=== PATIENT | male | born 1985 | race American Indian/Alaskan Native ===

== ENCOUNTER 2021-08-30 10:06 | Emergency (ER) | payer SELFPAY ==
[2021-08-30 10:24] VITALS: BP 145/91
[2021-08-30] MEDS ORDERED: FAMOTIDINE 20 MG TAB PO ONE (11:09)
[2021-08-30] MEDS ORDERED: ONDANSETRON 4 MG ODT TAB PO ONE (11:09)
[2021-08-30] MEDS ORDERED: ALUM-MAG HYDROXIDE-SIMETHICONE 200-200-20MG/5ML ORAL LIQD 30 ML PO ONE (11:09)
[2021-08-30] MEDS ORDERED: LIDOCAINE VISCOUS 2% 15 ML ORAL LIQD PO ONE (11:09)
--- NOTE | 2021-08-30 11:10 | Emergency Department Report ---
ED Abdominal Pain HPI - General Chief Complaint: Abdominal Pain Stated Complaint: STOMACH ULCER Time Seen by Provider: 08/30/21 10:53 Source: patient Mode of arrival: Ambulatory Limitations: No Limitations - History of Present Illness Initial Comments: 36-year-old male with known history of peptic ulcer disease presents to the ER today with complaint of epigastric/left upper quadrant abdominal pain. Patient states that his symptoms flareup about 1 week ago. He states that he has been taking [id number] famotidine, and Pepto-Bismol without much relief. He reports intermittent vomiting intermittent diarrhea and he noticed that his stools were black. He denies any fever, chills, UTI symptoms, chest pain or shortness of breath. He denies any abdominal surgeries in the past. He denies alcohol abuse or NSAID abuse. He denies illicit drug use. MD Complaint: abdominal pain - Related Data Previous Rx's Medication Instructions Recorded Last Taken Type Famotidine [Pepcid] 20 mg PO BID #30 tablet 08/30/21 Unknown Rx Ondansetron [Zofran Odt] 4 mg PO Q8HR #15 tab.rapdis 08/30/21 Unknown Rx Pantoprazole [Protonix] 40 mg PO QDAY #30 tablet 08/30/21 Unknown Rx Allergies Allergy/AdvReac Type Severity Reaction Status Date / Time No Known Allergies Allergy Unverified 08/30/21 10:20 ED Review of Systems ROS: Stated complaint: STOMACH ULCER Other details as noted in HPI Comment: All other systems reviewed and negative Constitutional: denies: chills, fever Eyes: denies: eye pain, eye discharge, vision change ENT: denies: ear pain, throat pain, dental pain, hearing loss, epistaxis, congestion Respiratory: denies: cough, shortness of breath, SOB with exertion, SOB at rest, wheezing Cardiovascular: denies: chest pain, palpitations, dyspnea on exertion, edema, syncope, paroxysmal nocturnal dyspnea Gastrointestinal: abdominal pain, nausea, vomiting, melena. denies: diarrhea, constipation, hematemesis, hematochezia Genitourinary: denies: urgency, dysuria, frequency, hematuria, discharge, testicular pain, testicular mass Musculoskeletal: denies: back pain, joint swelling, arthralgia Skin: denies: rash, lesions, change in color, change in hair/nails, pruritus Neurological: denies: headache, weakness, numbness, paresthesias, confusion, abnormal gait, vertigo Psychiatric: denies: anxiety, depression, auditory hallucinations, visual hallucinations, homicidal thoughts, suicidal thoughts Hematological/Lymphatic: denies: easy bleeding, easy bruising, swollen glands ED Past Medical Hx - Social History Smoking Status: Current Every Day Smoker Substance Use Type: Alcohol - Medications Home Medications: Home Medications Medication Instructions Recorded Confirmed Last Taken Type Famotidine [Pepcid] 20 mg PO BID #30 tablet 08/30/21 Unknown Rx Ondansetron [Zofran Odt] 4 mg PO Q8HR #15 tab.rapdis 08/30/21 Unknown Rx Pantoprazole [Protonix] 40 mg PO QDAY #30 tablet 08/30/21 Unknown Rx ED Physical Exam - General Limitations: No Limitations General appearance: alert, in no apparent distress - Head Head exam: Present: atraumatic, normocephalic, normal inspection - Eye Eye exam: Present: normal appearance, PERRL, EOMI Pupils: Present: normal accommodation - Neck Neck exam: Present: normal inspection, full ROM. Absent: meningismus - Respiratory Respiratory exam: Present: normal lung sounds bilaterally. Absent: respiratory distress, wheezes, rales, rhonchi - Cardiovascular Cardiovascular Exam: Present: regular rate, normal rhythm, normal heart sounds - GI/Abdominal GI/Abdominal exam: Present: soft, tenderness (Epigastric and left upper quad rant). Absent: distended, guarding, rebound - Rectal Rectal exam: Present: normal rectal tone, black stool (Scant amount of black stool noted on BRONSON), other (Client Services Representative present). Absent: fecal impaction, hemorrhoids, mass, tenderness - Neurological Exam Neurological exam: Present: alert, oriented X3, CN II-XII intact - Psychiatric Psychiatric exam: Present: normal affect, normal mood - Skin Skin exam: Present: intact ED Course Vital Signs 08/30/21 10:21 Temperature 98.4 F Pulse Rate 53 L Respiratory 18 Rate Blood Pressure 145/91 O2 Sat by Pulse 100 Oximetry ED Medical Decision Making - Lab Data Result diagrams: 08/30/21 11:32 08/30/21 11:32 - Medical Decision Making 36-year-old male with known history of peptic ulcer disease presents to the ER today with complaint of epigastric/left upper quadrant abdominal pain. Patient states that his symptoms flareup about 1 week ago. He states that he has been taking [id number] famotidine, and Pepto-Bismol without much relief. He reports intermittent vomiting intermittent diarrhea and he noticed that his stools were black. He denies any fever, chills, UTI symptoms, chest pain or shortness of breath. He denies any abdominal surgeries in the past. He denies alcohol abuse or NSAID abuse. He denies illicit drug use. 1405: Labs reviewed, labs unremarkable including negative Hemoccult. Suspect that the black stools were likely related to the Pepto-Bismol that patient was drinking. He has a nonsurgical abdominal exam. He is currently resting comfortably, feels better after meds and he is neurologically intact with a normal gait. He is not toxic and appears hydrated. Patient requesting refills on Protonix he will also be given Pepcid and Zofran. Patient instructed to follow-up with his primary care doctor. He understands to return if worse. Patient was stable at time of discharge. Critical care attestation.: If time is entered above; I have spent that time in minutes in the direct care of this critically ill patient, excluding procedure time. ED Disposition Clinical Impression: Peptic ulcer disease, Epigastric pain Disposition: 01 HOME / SELF CARE / HOMELESS Is pt being admited?: No Does the pt Need Aspirin: No Condition: Stable Instructions: Peptic Ulcer, Acvn-[id number], Abdominal Pain, Adult, Ycks-ju-[id number] Additional Instructions: I recommend that you take the Protonix, the Pepcid and the Zofran as prescribed. Try to avoid any foods that may trigger your ulcer such as caffeine, alcohol, tobacco use, acidic foods and NSAIDs. Follow-up with your primary care doctor. Return to the ER if your symptoms changes or worsens in any way. Prescriptions: Famotidine [Pepcid] 20 mg PO BID #30 tablet Pantoprazole [Protonix] 40 mg PO QDAY #30 tablet Ondansetron [Zofran Odt] 4 mg PO Q8HR #15 tab.rapdis Referrals: TIERRA MCDONALD MD [Primary Care Provider] - 3-5 Days Time of Disposition: 13:33
[2021-08-30 12:32] LABS: Alanine Aminotransferase 13 units/L (7-56); Albumin 4.5 g/dL (3.9-5); BUN/Creatinine Ratio 9; Blood Urea Nitrogen 8 mg/dL (9-20); Calcium 9.7 mg/dL (8.4-10.2); Hemolysis Index 11
[2021-08-30 12:55] LABS: Eosinophils % (Auto) 1.5 % (0.0-4.3); Hemoglobin 15.8 gm/dl (11.8-15.2); Lymphocytes % (Auto) 31.6 % (13.4-35.0); Mean Corpuscular HGB Conc 32 % (32-34); Mean Corpuscular Volume 87 fl (84-94); Monocytes % (Auto) 7.9 % (0.0-7.3); Platelet Count 236 K/mm3 (140-440); Red Blood Count 5.63 M/mm3 (3.65-5.03); Red Cell Distribution Width 14.3 % (13.2-15.2)
[2021-08-30 12:56] LABS: Basophils # (Auto) 0.1 K/mm3 (0.0-0.1); Basophils % (Auto) 1.3 % (0.0-1.8); Eosinophils # (Auto) 0.1 K/mm3 (0.0-0.4); Lymphocytes # (Auto) 2.7 K/mm3 (1.2-5.4); Monocytes # (Auto) 0.7 K/mm3 (0.0-0.8)
== END 2021-08-30 14:04 | disposition home or self-care (01) ==
LOC: EDSEX → ED 10:06
DX: K27.9 Peptic ulcer, site unspecified, unspecified as acute or chronic, without hemorrhage or perforation (principal); F17.200 Nicotine dependence, unspecified, uncomplicated; Z72.89 Other problems related to lifestyle; Z79.899 Other long term (current) drug therapy
CPT/HCPCS: 36415; 80053; 82271; 83690; 85025; 99283; J3490; Q0162

== ENCOUNTER 2021-11-17 09:32 | Emergency (ER) | payer SELFPAY ==
[2021-11-17 11:03] LABS: Basophils % (Auto) 0.7 % (0.0-1.8); Eosinophils # (Auto) 0.2 K/mm3 (0.0-0.4); Eosinophils % (Auto) 3.5 % (0.0-4.3); Hematocrit 45.6 % (35.5-45.6); Hemoglobin 14.9 gm/dl (11.8-15.2); Lymphocytes # (Auto) 2.6 K/mm3 (1.2-5.4); Lymphocytes % (Auto) 36.3 % (13.4-35.0); Mean Corpuscular HGB Conc 33 % (32-34); Mean Corpuscular Volume 86 fl (84-94); Monocytes # (Auto) 0.8 K/mm3 (0.0-0.8); Monocytes % (Auto) 11.4 % (0.0-7.3); Platelet Count 219 K/mm3 (140-440); Red Blood Count 5.33 M/mm3 (3.65-5.03); Red Cell Distribution Width 14.4 % (13.2-15.2)
[2021-11-17 11:42] LABS: BUN/Creatinine Ratio 9; Blood Urea Nitrogen 9 mg/dL (9-20); Calcium 9.7 mg/dL (8.4-10.2); Hemolysis Index 11
[2021-11-17 13:32] LABS: Bilirubin,Urine NEG (Negative); Blood,Urine SM (Negative); Color,Urine Yellow (Yellow); Mucus,Urine 2+ /HPF; Protein,Urine <15 mg/dL mg/dL (Negative)
[2021-11-17] MEDS ORDERED: ALUM-MAG HYDROXIDE-SIMETHICONE 200-200-20MG/5ML ORAL LIQD 30 ML PO ONE (15:15)
[2021-11-17] MEDS ORDERED: DICYCLOMINE 10 MG/5 ML ORAL LIQD PO ONE (15:15)
[2021-11-17] MEDS ORDERED: LIDOCAINE VISCOUS 2% 15 ML ORAL LIQD PO ONE (15:15)
--- NOTE | 2021-11-17 15:31 | Emergency Department Report ---
ED Abdominal Pain HPI - General Chief Complaint: Abdominal Pain Stated Complaint: ULCER PAIN/VOMITTING/CRAMPS Time Seen by Provider: 11/17/21 15:16 Source: patient Mode of arrival: Ambulatory Limitations: No Limitations - History of Present Illness Initial Comments: 36-year-old black male with a past medical history of GERD presents to the emergency department for evaluation of 1 week history of epigastric pain along with nausea and vomiting. He states that he usually takes Protonix 40 mg twice a day but has been out of his medications for over a week. He denies diarrhea, black stools, hemataemesis, fever, dysuria, and penile discharge. MD Complaint: abdominal pain -: Gradual, week(s) (1) Location: epigastric Radiation: none Migration to: no migration Severity scale (0 -10): 10 Quality: burning Consistency: intermittent Associated Symptoms: nausea, vomiting. denies: diarrhea, fever, chills, dysuria, hematemesis, hematochezia, melena, hematuria, anorexia - Related Data Previous Rx's Medication Instructions Recorded Last Taken Type Famotidine [Pepcid] 20 mg PO BID #30 tablet 08/30/21 Unknown Rx Ondansetron [Zofran Odt] 4 mg PO Q8HR #15 tab.rapdis 08/30/21 Unknown Rx Pantoprazole [Protonix] 40 mg PO QDAY #30 tablet 08/30/21 Unknown Rx Ondansetron [Zofran Odt] 4 mg PO Q8HR PRN #12 tab.rapdis 11/17/21 Unknown Rx Pantoprazole [Protonix] 40 mg PO BID #60 tablet 11/17/21 Unknown Rx Allergies Allergy/AdvReac Type Severity Reaction Status Date / Time No Known Allergies Allergy Unverified 08/30/21 10:20 ED Review of Systems ROS: Stated complaint: ULCER PAIN/VOMITTING/CRAMPS Other details as noted in HPI Comment: All other systems reviewed and negative Constitutional: denies: chills, fever Respiratory: denies: shortness of breath Cardiovascular: denies: chest pain, palpitations, dyspnea on exertion Gastrointestinal: abdominal pain, nausea, vomiting. denies: diarrhea, hematemesis, melena, hematochezia Genitourinary: denies: urgency Musculoskeletal: denies: back pain Neurological: denies: headache, weakness ED Past Medical Hx - Past Medical History Additional medical history: ulcer - Surgical History Past Surgical History?: No - Social History Smoking Status: Current Every Day Smoker - Medications Home Medications: Home Medications Medication Instructions Recorded Confirmed Last Taken Type Famotidine [Pepcid] 20 mg PO BID #30 tablet 08/30/21 Unknown Rx Ondansetron [Zofran Odt] 4 mg PO Q8HR #15 tab.rapdis 08/30/21 Unknown Rx Pantoprazole [Protonix] 40 mg PO QDAY #30 tablet 08/30/21 Unknown Rx Ondansetron [Zofran Odt] 4 mg PO Q8HR PRN #12 tab.rapdis 11/17/21 Unknown Rx Pantoprazole [Protonix] 40 mg PO BID #60 tablet 11/17/21 Unknown Rx ED Physical Exam - General Limitations: No Limitations General appearance: alert, in no apparent distress - Head Head exam: Present: atraumatic, normocephalic - Eye Eye exam: Present: normal appearance. Absent: conjunctival injection - Neck Neck exam: Present: normal inspection, full ROM. Absent: tenderness, lymphadenopathy - Respiratory Respiratory exam: Present: normal lung sounds bilaterally. Absent: respiratory distress, wheezes, rales, rhonchi, stridor, chest wall tenderness - Cardiovascular Cardiovascular Exam: Present: regular rate, normal heart sounds - GI/Abdominal GI/Abdominal exam: Present: soft, normal bowel sounds. Absent: distended, tenderness, guarding, rebound, rigid - Extremities Exam Extremities exam: Present: normal inspection, normal capillary refill - Back Exam Back exam: Present: normal inspection. Absent: CVA tenderness (R), CVA tenderness (L), vertebral tenderness - Neurological Exam Neurological exam: Present: alert, oriented X3, normal gait - Psychiatric Psychiatric exam: Present: normal affect, normal mood - Skin Skin exam: Present: warm, dry, intact, normal color ED Course Vital Signs 11/17/21 09:46 Temperature 98.5 F Pulse Rate 62 Respiratory 16 Rate Blood Pressure 129/93 O2 Sat by Pulse 100 Oximetry ED Medical Decision Making - Lab Data Result diagrams: 11/17/21 10:22 11/17/21 10:22 - Medical Decision Making 36-year-old black male with a past medical history of GERD presents to the emergency department for evaluation of 1 week history of epigastric pain along with nausea and vomiting. He states that he usually takes Protonix 40 mg twice a day but has been out of his medications for over a week. He denies diarrhea, black stools, hemataemesis, fever, dysuria, and penile discharge. Physical exam unremarkable. Labs and urine within normal limits. Symptoms impr liberty after GI cocktail. Patient to be discharged home with prescription for Protonix 40 mg twice daily which she usually takes at home. He is advised to take medications as prescribed and follow-up with GI for further evaluation and management. He is advised to return to the emergency department as needed. He verbalizes understanding of and agreement with plan of care. Critical care attestation.: If time is entered above; I have spent that time in minutes in the direct care of this critically ill patient, excluding procedure time. ED Disposition Clinical Impression: Epigastric pain Disposition: 01 HOME / SELF CARE / HOMELESS Is pt being admited?: No Does the pt Need Aspirin: No Condition: Stable Instructions: Heartburn, [id number], Food Choices for Gastroesophageal Reflux Disease, Adult, Abdominal Pain, Adult, [id number], Gastroesophageal Reflux Disease, Adult, Rtcg-[id number] Additional Instructions: Take medications as prescribed. Follow-up with primary care provider if no improvement or worsening symptoms. Return to the emergency department as needed. Prescriptions: Pantoprazole [Protonix] 40 mg PO BID #60 tablet Ondansetron [Zofran Odt] 4 mg PO Q8HR PRN #12 tab.rapdis PRN Reason: Nausea And Vomiting Referrals: BETH CHADWICK MD [Staff Physician] - 3-5 Days Forms: Work/School Release Form(ED) Time of Disposition: 15:31
[2021-11-17 15:55] VITALS: BP 152/78
== END 2021-11-17 15:55 | disposition home or self-care (01) ==
LOC: ED 09:32
DX: R10.13 Epigastric pain (principal); R11.2 Nausea with vomiting, unspecified; F17.200 Nicotine dependence, unspecified, uncomplicated; Z79.899 Other long term (current) drug therapy
CPT/HCPCS: 36415; 80048; 81001; 85025; 99283

== ENCOUNTER 2022-01-13 11:41 | Emergency (ER) | payer SELFPAY ==
[2022-01-13 11:55] VITALS: BP 135/85
[2022-01-13] MEDS ORDERED: ALUM-MAG HYDROXIDE-SIMETHICONE 200-200-20MG/5ML ORAL LIQD 30 ML PO ONE (11:55)
[2022-01-13] MEDS ORDERED: LIDOCAINE VISCOUS 2% 15 ML ORAL LIQD PO ONE (11:55)
[2022-01-13] MEDS ORDERED: DICYCLOMINE 10 MG/5 ML ORAL LIQD PO ONE (11:55)
--- NOTE | 2022-01-13 11:58 | Emergency Department Report ---
ED Abdominal Pain HPI - General Stated Complaint: STOMACH ULCER Time Seen by Provider: 01/13/22 11:54 - History of Present Illness Initial Comments: 36 yo black male with pmh of GERD presents to ed for evaluation of epigastric pain. He states that he ran out of his protonix a few weeks ago and has now started to have some epigastric pain with nausea and vomiting. He denies fever, diarrhea, and penile discharge. He states that he starts to have these symptoms whenever he runs out of protonix. MD Complaint: abdominal pain -: Gradual, days(s) (3-4) Location: epigastric Radiation: none Migration to: no migration Severity: moderate Severity scale (0 -10): 7 Quality: burning Consistency: intermittent Improves With: eating Associated Symptoms: nausea, vomiting. denies: diarrhea, fever, chills, dysuria, hematemesis, hematochezia, melena, hematuria, anorexia, syncope - Related Data Previous Rx's Medication Instructions Recorded Last Taken Type Famotidine [Pepcid] 20 mg PO BID #30 tablet 08/30/21 Unknown Rx Ondansetron [Zofran Odt] 4 mg PO Q8HR #15 tab.rapdis 08/30/21 Unknown Rx Ondansetron [Zofran Odt] 4 mg PO Q8HR PRN #12 tab.rapdis 11/17/21 Unknown Rx Pantoprazole [Protonix] 40 mg PO BID #60 tablet 11/17/21 Unknown Rx Pantoprazole [Protonix TAB] 40 mg PO QDAY #30 tablet 01/13/22 Unknown Rx Allergies Allergy/AdvReac Type Severity Reaction Status Date / Time No Known Allergies Allergy Unverified 08/30/21 10:20 ED Review of Systems ROS: Stated complaint: STOMACH ULCER Other details as noted in HPI Comment: All other systems reviewed and negative Constitutional: denies: chills, fever Respiratory: denies: shortness of breath Cardiovascular: denies: chest pain, palpitations Gastrointestinal: abdominal pain, nausea, vomiting. denies: diarrhea, hematemesis, melena, hematochezia Genitourinary: denies: urgency, dysuria, frequency, hematuria, discharge, testicular pain Musculoskeletal: denies: back pain Neurological: headache ED Past Medical Hx - Past Medical History Additional medical history: ulcer - Social History Smoking Status: Current Every Day Smoker - Medications Home Medications: Home Medications Medication Instructions Recorded Confirmed Last Taken Type Famotidine [Pepcid] 20 mg PO BID #30 tablet 08/30/21 Unknown Rx Ondansetron [Zofran Odt] 4 mg PO Q8HR #15 tab.rapdis 08/30/21 Unknown Rx Ondansetron [Zofran Odt] 4 mg PO Q8HR PRN #12 tab.rapdis 11/17/21 Unknown Rx Pantoprazole [Protonix] 40 mg PO BID #60 tablet 11/17/21 Unknown Rx Pantoprazole [Protonix TAB] 40 mg PO QDAY #30 tablet 01/13/22 Unknown Rx ED Physical Exam - General General appearance: alert, in no apparent distress - Head Head exam: Present: atraumatic, normocephalic - Eye Eye exam: Present: normal appearance. Absent: conjunctival injection, periorbital swelling, periorbital tenderness - Neck Neck exam: Present: normal inspection, full ROM. Absent: tenderness, lymphadenopathy - Respiratory Respiratory exam: Present: normal lung sounds bilaterally. Absent: respiratory distress, wheezes, rales, rhonchi, stridor, chest wall tenderness - Cardiovascular Cardiovascular Exam: Present: bradycardia, normal heart sounds - GI/Abdominal GI/Abdominal exam: Present: soft, normal bowel sounds. Absent: distended, tenderness, guarding, rebound, rigid - Extremities Exam Extremities exam: Present: normal inspection, full ROM, normal capillary refill. Absent: tenderness, pedal edema, joint swelling, calf tenderness - Back Exam Back exam: Present: normal inspection. Absent: CVA tenderness (R), CVA tenderness (L), vertebral tenderness - Neurological Exam Neurological exam: Present: alert, oriented X3, CN II-XII intact - Psychiatric Psychiatric exam: Present: normal affect, normal mood - Skin Skin exam: Present: warm, dry, intact, normal color ED Course Vital Signs 01/13/22 11:53 Temperature 98.6 F Pulse Rate 58 L Respiratory 14 Rate Blood Pressure 135/85 O2 Sat by Pulse 99 Oximetry ED Medical Decision Making - Medical Decision Making 36 yo black male with pmh of GERD presents to ed for evaluation of epigastric pain. He states that he ran out of his protonix a few weeks ago and has now started to have some epigastric pain with nausea and vomiting. He denies fever, diarrhea, and penile discharge. He states that he starts to have these symptoms whenever he runs out of protonix. Physical exam unremarkable. Symptoms consistent with GERD. Patient treated with GI cocktail in ED then discharged home with rx for protonix. He is advised to take medications as prescribed and follow up with pcp or GI for further evaluation and management or return to ED as needed. He verbalizes understanding of and agreement with plan of care. Critical care attestation.: If time is entered above; I have spent that time in minutes in the direct care of this critically ill patient, excluding procedure time. ED Disposition Clinical Impression: Epigastric pain Disposition: 01 HOME / SELF CARE / HOMELESS Is pt being admited?: No Does the pt Need Aspirin: No Condition: Stable Instructions: Indigestion, [id number], Gastroesophageal Reflux Disease, Adult, [id number] Additional Instructions: Take medications as prescribed. Follow-up with GI or primary care provider if no improvement or worsening symptoms. Return to the emergency department as needed. Prescriptions: Pantoprazole [Protonix TAB] 40 mg PO QDAY #30 tablet Referrals: TIERRA MCDONALD MD [Primary Care Provider] - 3-5 Days BETH CHADWICK MD [Staff Physician] - 3-5 Days Forms: Work/School Release Form(ED) Time of Disposition: 11:58
== END 2022-01-13 12:09 | disposition home or self-care (01) ==
LOC: ED 11:41
DX: R10.13 Epigastric pain (principal); F17.200 Nicotine dependence, unspecified, uncomplicated
CPT/HCPCS: 99282